=== PATIENT | male | born 1965 | race Caucasian/White ===

== ENCOUNTER → 2016-05-31 | Outpatient (CLI) | payer BC ==
--- NOTE | 2016-06-03 12:56 | CODING QUERY NO DIAGNOSIS ---
TREATMENT RENDERED WITHOUT A DIAGNOSIS To promote full compliance with coding requirements relating to patient care, physician participation is requested in all cases of certified procedural coder uncertainty. Please assist us with providing a diagnosis/symptom for the test(s) below: A diagnosis/symptom was not documented on your Order. A valid diagnosis/symptom is required to bill all insurances. Please remember that we are unable to code a diagnosis of rule out, probable, possible, questionable, or suspected. DATE OF SERVICE: 05/31/16 Tests that require a diagnosis: * TSH DIAGNOSIS: Provider Signature: Date: Thank you [facility] Once completed, please kindly fax back to [phone] For questions please call [phone]
== END | disposition home or self-care (01) ==
LOC: C.LAB 07:18
PROVIDERS: ATTEND Family Medicine
DX: R53.83 Other fatigue (principal)